=== PATIENT | male | born 1990 | race Caucasian/White ===

== ENCOUNTER 2016-09-29 09:49 | Emergency (ER) | payer SELFPAY ==
[2016-09-29 10:49] LABS: PH,URINE 6.5 (5.0-8.0); URINE BILIRUBIN NEGATIVE (NEGATIVE); URINE BLOOD NEGATIVE (NEGATIVE); URINE GLUCOSE (UA) NEGATIVE (NEGATIVE); URINE LEUKOCYTE ESTERASE NEGATIVE (NEGATIVE); URINE NITRITE NEGATIVE (NEGATIVE); URINE PROTEIN NEGATIVE (NEGATIVE); URINE UROBILINOGEN NORMAL (0-1 mg/dl)
[2016-09-29 11:06] LABS: URINE APPEARANCE CLEAR; URINE COLOR YELLOW
--- NOTE | 2016-09-29 11:19 | US ---
Exam: Scrotum and contents ultrasound COMPARISON: None INDICATION: Right testicular pain and swelling for one week. Findings: Ultrasound evaluation of the scrotum and contents was obtained. Right testicle measures 5.0 x 3.2 x 3.4 cm, left testicle measures 4.7 x 2.6 x 3.3 cm. Both testicles are homogeneous in echotexture without focal mass. Blood flow is present within both testicles and appears symmetric. Aside from a tiny epididymal cyst on the left which is of no clinical concern, epididymides are otherwise unremarkable. There is no significant hydrocele. Borderline varicoceles are noted, left greater than right. IMPRESSION: No acute findings identified to explain right-sided testicular pain and swelling. Borderline bilateral varicoceles, left greater than right. Report called to Dr. Patel 1115 hours 09/29/2016.
[2016-09-30 14:08] LABS: CHLAMYDIA BD Negative (Negative); N.GONORRHOEAE BD Negative (Negative); SOURCE Urine (())
== END 2016-09-29 12:26 | disposition home or self-care (01) ==
LOC: ED 09:49
DX: N50.82 Scrotal pain (principal); R10.31 Right lower quadrant pain